=== PATIENT | female | born 1960 | race Caucasian/White ===

== ENCOUNTER 2019-07-03 14:44 | Emergency (ER) | payer MEDICAID ==
[~2019-07-03] VITALS: Ht 154.9 cm; Wt 72.6 kg
[2019-07-03 15:00] VITALS: BP 138/77
[2019-07-03] MEDS ORDERED: NACL 0.9% 1,000 ML IV ONE (15:17)
[2019-07-03] MEDS ORDERED: METOCLOPRAMIDE 10 MG/2 ML INJ VIAL IVP ONE (15:20)
[2019-07-03] MEDS ORDERED: diphenhydrAMINE 50 MG/ML VIAL IVP ONE (15:20)
[2019-07-03 16:50] VITALS: BP 122/77
== END 2019-07-03 16:50 | disposition home or self-care (01) ==
LOC: MED 14:44
DX: R51 Headache (principal); I10 Essential (primary) hypertension; E11.9 Type 2 diabetes mellitus without complications; Z90.49 Acquired absence of other specified parts of digestive tract
CPT/HCPCS: 81002; 96374; 96375; 99283; J1200; J2765; J7030